=== PATIENT | female | born 1960 | race African-American/Black ===

== ENCOUNTER 2018-07-22 19:38 | Emergency (ER) | payer MEDICARE ==
[~2018-07-22] VITALS: Ht 160 cm; Wt 55.3 kg
--- NOTE | 2018-07-22 20:00 | NUR ---
BIBS W/ C/O GHISLAINE NEWLY PLACED SHUNT BLEEDING. NOTED W/ MINIMAL BLEEDING FROM THE SITE. CURRENTLY ON HD, NO OTHER COMPLAINT . VSS.
[2018-07-22 20:36] LABS: BASOPHILS % (AUTO) 0.4 % (0.0-2.0); EOSINOPHILS % (AUTO) 2.9 % (0.0-6.0); HEMATOCRIT 27 % (33-45); HEMOGLOBIN 8.9 g/dL (11.5-14.8); LYMPHOCYTES # (AUTO) 1.4 /CMM (0.8-4.8); LYMPHOCYTES % (AUTO) 19.5 % (20.0-44.0); MEAN CORPUSCULAR HGB CONC 33 g/dl (31.0-36.0); MEAN CORPUSCULAR VOLUME 95 fL (82-100); MONOCYTES # (AUTO) 1.1 /CMM (0.1-1.30); MONOCYTES % (AUTO) 15.4 % (2.0-12.0); NEUTROPHILS # (AUTO) 4.3 /CMM (1.8-8.9); NEUTROPHILS % (AUTO) 61.8 % (43.0-81.0); PLATELET COUNT (AUTO) 117 /CMM (150-450); RED BLOOD CELL COUNT(AUTO) 2.82 MIL/uL (4.0-5.2)
[2018-07-22 20:46] LABS: CALCIUM, SERUM 8.8 mg/dL (8.5-10.1); POTASSIUM 5.6 mmol/L (3.5-5.1)
[2018-07-22 20:53] LABS: CREATININE 10.2 mg/dL (0.6-1.3)
[2018-07-22] MEDS ORDERED: SODIUM POLYSTYRENE SULFONATE 15 G/60 ML BOTTLE PO ONE (21:00)
[2018-07-22] MEDS ORDERED: FUROSEMIDE 40 MG/4 ML VIAL IV ONE (21:00)
[2018-07-22] MEDS ORDERED: FUROSEMIDE 20 MG/2 ML VIAL ONE (21:06)
[2018-07-22] MEDS ORDERED: SODIUM POLYSTYRENE SULFONATE 15 G/60 ML BOTTLE ONE (21:06)
[2018-07-22 21:47] LABS: EOSINOPHILS % (MANUAL) 2 % (0-4); LYMPHOCYTES % (MANUAL) 21 % (16-48); MONOCYTES % (MANUAL) 13 % (0-11.0); NEUTROPHILS % (MANUAL) 64 (42-76)
--- NOTE | 2018-07-22 22:30 | NUR ---
PER DR MAGAÑA TO HOLD ON TO LASIX. PT ANURIC
--- NOTE | 2018-07-22 22:35 | NUR ---
Patient discharged to home in stable condition. Written and verbal after care instructions given. Patient verbalizes understanding of instruction.
[2018-07-22 22:50] VITALS: BP 138/85
== END 2018-07-22 22:35 | disposition home or self-care (01) ==
LOC: ER 19:46
DX: T82.590A Other mechanical complication of surgically created arteriovenous fistula, initial encounter (principal); I12.0 Hypertensive chronic kidney disease with stage 5 chronic kidney disease or end stage renal disease; N18.6 End stage renal disease; Z99.2 Dependence on renal dialysis
CPT/HCPCS: 36415; 80048-TC; 85025-TC; 85730-TC; J1940